=== PATIENT | male | born 1960 | race African-American/Black ===

== ENCOUNTER 2021-08-21 09:54 | Emergency (ER) | payer OTHER ==
[2021-08-21] VITALS (8 sets, daily range): BP systolic 135–160; BP diastolic 81–96
[~2021-08-21] VITALS: Ht 185.4 cm; Wt 90.0 kg
[2021-08-21 10:52] LABS: IMMATURE GRANULOCYTES 0.2 % (0.0-5.0); MEAN CORPUSCULAR HGB 31.8 pG CALC (26.0-32.0); MEAN CORPUSCULAR HGB CONC 31.8 g/dL CAL (32.0-36.0); NEUT# 2.58 thou/uL (1.82-7.42); RED BLOOD COUNT 4.4 mill/uL (4.70-6.10); RED CELL DISTRI WIDTH 13.3 % (11.5-15.5)
[2021-08-21 10:55] LABS: URINE BILIRUBIN - DIPSTICK NEGATIVE (NEGATIVE); URINE BLOOD DIPSTICK LARGE (NEGATIVE); URINE COLOR YELLOW; URINE GLUCOSE - DIPSTICK NEGATIVE (NEGATIVE); URINE KETONE NEGATIVE (NEGATIVE); URINE LEUK ESTERASE NEGATIVE (NEGATIVE); URINE PH 7.5 (4.5-8.0); URINE PROTEIN - DIPSTICK NEGATIVE (NEG-TRACE); URINE UROBILINOGEN - DIPSTICK 0.2 E.U./dL (0.2)
[2021-08-21 11:02] LABS: URINE NITRITE - DIPSTICK NEGATIVE (Negative)
[2021-08-21 11:07] LABS: URINE WBC 0-2 WBC/hpf (0-5)
[2021-08-21 11:13] LABS: ALBUMIN 3.7 g/dL (3.2-5.0); ALKALINE PHOSPHATASE 77 u/l (38-126); ANION GAP 8 (6-22 (CALC)); BILIRUBIN, TOTAL 0.3 mg/dL (0.0-1.4); BUN 11 mg/dL (8-23); BUN/CREATININE RATIO 10 (12-20 (CALC)); CARBON DIOXIDE 29 mmol/l (22-30); CHLORIDE 106 mmol/l (95-108); CREATININE 1.1 mg/dL (0.7-1.3); GFR FOR AFR.AMER. > 60 ML/MIN (>=60 (CALC)); GFR OTHER RACES > 60 ML/MIN (>=60 (CALC)); POTASSIUM 4.6 mmol/l (3.5-5.1); SGOT/AST 30 u/l (19-48); SODIUM 138 mmol/l (137-146); TOTAL PROTEIN 7.1 g/dL (6.3-8.2)
[2021-08-21] MEDS ORDERED: TAMSULOSIN0.4 MG PO (12:29)
== END 2021-08-21 12:59 | disposition home or self-care (01) | DRG 694 ==
LOC: ED 09:54
PROVIDERS: Family Medicine
DX: N20.1 Calculus of ureter (principal); N21.0 Calculus in bladder

== ENCOUNTER 2022-04-15 06:08 | Day surgery (SDC) | payer OTHER ==
[~2022-04-15] VITALS: Ht 185.4 cm; Wt 90.7 kg
[~2022-04-15 06:08] MED LIST: AMLODIPINE BESYL5 MG PO; TAMSULOSIN0.4 MG PO
[2022-04-15 11:13] VITALS: BP 116/70
== END 2022-04-15 11:10 | disposition home or self-care (01) | DRG 694 ==
LOC: ENDO 06:08 → ORM 06:08
PROVIDERS: ATTEND Urology
PROC: 0TCB8ZZ Extirpation of Matter from Bladder, Via Natural or Artificial Opening Endoscopic (ICD-10-PCS; principal; 2022-04-15)
DX: N21.0 Calculus in bladder (principal); N13.8 Other obstructive and reflux uropathy; N40.1 Benign prostatic hyperplasia with lower urinary tract symptoms; I10 Essential (primary) hypertension; N28.1 Cyst of kidney, acquired
CPT/HCPCS: J0131; J1956